=== PATIENT | female | born 1950 | race Caucasian/White ===

== ENCOUNTER 2021-03-14 20:17 | Emergency (ER) | payer MEDICARE ==
[~2021-03-14] VITALS: Ht 160 cm; Wt 90.7 kg
[~2021-03-14 20:17] MED LIST: TRAMADOL HCL50 MG; Z.0.KLONOPIN1 MG; Z.0.NEURONTIN300 MG; Z.0.PLAVIX75 MG; Z.0.TRAZODONE HCL50
== END 2021-03-14 23:05 | disposition home or self-care (01) ==
LOC: ER 20:29
DX: S01.81XA Laceration without foreign body of other part of head, initial encounter (principal); W05.0XXA Fall from non-moving wheelchair, initial encounter; Y92.008 Other place in unspecified non-institutional (private) residence as the place of occurrence of the external cause; F17.210 Nicotine dependence, cigarettes, uncomplicated; E78.00 Pure hypercholesterolemia, unspecified; Z85.3 Personal history of malignant neoplasm of breast
CPT/HCPCS: 70450; 72125; 99283

== ENCOUNTER 2021-04-13 12:34 | Emergency (ER) | payer MEDICARE ==
[~2021-04-13] VITALS: Ht 160 cm; Wt 90.7 kg
[2021-04-13 17:49] VITALS: BP 136/71
== END 2021-04-13 16:30 | disposition home or self-care (01) ==
LOC: ER 13:26
DX: S01.81XA Laceration without foreign body of other part of head, initial encounter (principal); W18.30XA Fall on same level, unspecified, initial encounter; E11.9 Type 2 diabetes mellitus without complications; J44.9 Chronic obstructive pulmonary disease, unspecified; I25.10 Atherosclerotic heart disease of native coronary artery without angina pectoris; G40.909 Epilepsy, unspecified, not intractable, without status epilepticus; F10.10 Alcohol abuse, uncomplicated
CPT/HCPCS: 70450; 99283